=== PATIENT | female | born 1995 | race Caucasian/White ===

== ENCOUNTER → 2019-05-31 | Outpatient (CLI) | payer OTHER ==
[~2019-05-31] MED LIST: E-Z-GAS II EFFERVESCENT PACKET (SODIUM BICARB./CITRIC ACID/SIMETHICONE) As Ordered ONE; E-Z-HD 98% w/w 340GM SUSP BTL As Ordered ONE; E-Z-PAQUE 96% w/w SUSP 176GM BTL As Ordered ONE
--- NOTE | 2019-05-31 16:06 | REP ---
Esophagram The procedure was performed under the direct supervision of Dr. Sena. The images were reviewed with Dr. Sena. 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 The superior mediastinal structures are midline. The heart size is within normal limits. The lungs are clear. Liquid barium and gas producing granules were given in the erect position as well as liquid barium in the prone oblique positions in order to perform a double contrast esophagram examination. The oral and pharyngeal stages of deglutition are unremarkable. Esophageal transport is prompt and efficient and there is no esophagitis, stricture, mucosal ring or hiatal hernia. There is gastroesophageal reflux demonstrated to the level of the thoracic inlet. Impression: There is gastroesophageal reflux demonstrated to the level of the thoracic inlet. Otherwise, unremarkable double contrast esophagram examination. 0.5 minutes of fluoroscopy time was utilized for this procedure. Reviewed by CLOVIS Barboza 05/31/2019 03:44 P Electronically Signed by Rober Sena MD 05/31/2019 03:58 P
== END ==
LOC: M RAD 09:01
PROVIDERS: ATTEND Physician Assistant Medical
DX: R10.13 Epigastric pain (principal); K21.9 Gastro-esophageal reflux disease without esophagitis